=== PATIENT | male | born 1955 | race Caucasian/White ===

== ENCOUNTER 2023-04-08 16:51 | Emergency (ER) | payer MEDICARE, OTHER ==
[~2023-04-08] VITALS: Ht 180.3 cm; Wt 99.8 kg
[2023-04-08 22:27] VITALS: BP 156/74; TEMP 98.4; O2SAT 94
== END 2023-04-08 22:27 | disposition home or self-care (01) ==
LOC: ER 17:00
DX: F10.129 Alcohol abuse with intoxication, unspecified (principal); G20.A1 Parkinson's disease without dyskinesia, without mention of fluctuations; Y90.9 Presence of alcohol in blood, level not specified